=== PATIENT | female | born 2000 | race Caucasian/White ===

== ENCOUNTER → 2021-03-12 12:33 | Day surgery (SDC) | payer BC, MEDICAID, SELFPAY ==
[2021-03-12 12:48] VITALS: BP 124/82; PULSE 84; RESP 18; TEMP 36.2; O2SAT 98
[2021-03-12 13:59] VITALS: BP 128/84; PULSE 83; RESP 18; TEMP 36.3; O2SAT 100
== END ==
PROVIDERS: Visit Provider Family Medicine
DX: O26.892 Other specified pregnancy related conditions, second trimester (principal); Z3A.00 Weeks of gestation of pregnancy not specified; Z67.91 Unspecified blood type, Rh negative
CPT/HCPCS: 36415; 36430; 86850; 86900; 90384; 96372

== ENCOUNTER 2021-05-24 18:18 | Outpatient (CLI) | payer BC, MEDICAID, SELFPAY ==
[2021-05-24] VITALS (9 sets, daily range): BP systolic 99–121; BP diastolic 59–92; PULSE 85–115; RESP 17–18; TEMP 36.6–36.7; BMI 36.1
== END 2021-05-24 20:43 | disposition home or self-care (01) ==
LOC: OPOB 18:24 → OBGYN 18:40
PROVIDERS: Visit Provider Family Medicine
DX: O47.9 False labor, unspecified (principal)
CPT/HCPCS: 59025; 99211

== ENCOUNTER 2021-05-30 07:26 | Inpatient (IN) | payer BC, MEDICAID, SELFPAY ==
[2021-05-30] VITALS (58 sets, daily range): BP systolic 97–134; BP diastolic 54–79; PULSE 69–136; TEMP 36–36.4; O2SAT 98–100; BMI 35.9
[2021-05-30] MEDS: dextrose 5%-lactated ringers 1,000 ML 125 ML IV ×2 (08:35→18:24)
[2021-05-30] MEDS: oxytocin 30 UNIT/500 ML BAG IV (08:36)
[2021-05-30 09:18] LABS: Basophils # 0.1 10^3/uL (0.0-0.1); Basophils % 0.5 %; Eosinophils # 0.1 10^3/uL (0.0-0.8); Eosinophils % 0.5 %; Hematocrit 33.8 % (37.0-47.0); Hemoglobin 10.8 g/dL (11.5-15.3); Lymphocytes # 3.5 10^3/uL (0.8-4.8); Lymphocytes % 31.9 %; Mean Corpuscular Hemoglobin 26.5 pg (28.0-34.0); Mean Corpuscular Volume 82.8 fl (81-99); Mean Platelet Volume 10.9 fL (7.4-10.4); Monocytes # 0.8 10^3/uL (0.2-0.9); Monocytes % 7.5 %; Neutrophils # 6.51 10^3/uL (1.8-7.7); Neutrophils % 59.1 %; Nucleated Red Blood Cells % 0 %; Platelet Count 255 10^3/cmm (130-400); Red Blood Count 4.08 10^6/uL (4.1-5.3); Red Cell Distribution Width 12.9 % (12.1-15.1)
[2021-05-30] MEDS: lactated ringers 1,000 ML 999 ML IV (14:37)
--- NOTE | 2021-05-30 15:17 | P.ANESASSM_ITS ---
Pre-Anesthetic Assessment Pre-Anesthetic Assessment: Height/Weight: Height 1.65 m Weight 97.976 kg Temp Pulse BP Pulse Ox 96.8 F L 77 115/66 100 05/30/21 13:17 05/30/21 15:13 05/30/21 15:10 05/30/21 15:13 Was Beta Shubham taken within 24 hours: N/A Was Clonidine taken within 24 hours: N/A Social: Social History: No alcohol and No tobacco Exam: Pre-Anes Outpt Exam: alert, oriented x 3, clear to auscultation bilaterally and regular rate & rhythm Airway: Submandibular: WNL Cervical ROM: WNL MP: 2 Dentition: Full Metabolic: Metabolic: Thyroid Anesthetic Plan: ASA status: 2 Anesthesia: Regional (specify below) (labor epidural) Risk of > 500 ml blood loss (7ml/kg in children): No Meds/Allergies Current Medications: Current Medications Generic Name Dose Route Start Last Admin Trade Name Freq PRN Reason Stop Dose Admin Lactated Ringer's 1,000 mls @ 999 m ls/hr 05/30/21 08:05 05/30/21 14:37 Lactated Ringers IV 999 mls/hr .Q1H1M PRN Administration BLEEDING Dextrose/Lactated Ringer's 1,000 mls @ 125 m ls/hr 05/30/21 08:15 05/30/21 08:35 Dextrose 5%-Lact ated Ringers IV 125 mls/hr .Q8H ANGELO Administration Oxytocin 30 unit in 500 ml s @ 1 mls/hr 05/30/21 08:15 05/30/21 14:18 Pitocin IV 20 milliunit/min .Q24H ANGELO 20 mls/hr Titration Protocol 1 MILLIUNIT/MIN PFSH Anesthesia Female Reproductive History: : 3 Data Anesthesia CBC & Chem 7: 05/30/21 08:00 Other Labs: Laboratory Results - last 48 hr 05/30/21 08:00 WBC 11.0 H RBC 4.08 L Hgb 10.8 L Hct 33.8 L MCV 82.8 MCH 26.5 L MCHC 32.0 RDW 12.9 Plt Count 255 MPV 10.9 H Neut % (Auto) 59.1 Lymph % (Auto) 31.9 [place] % (Auto) 7.5 Eos % (Auto) 0.5 Baso % (Auto) 0.5 Neut # (Auto) 6.51 Lymph # (Auto) 3.5 [place] # (Auto) 0.8 Eos # (Auto) 0.1 Baso # (Auto) 0.1 Nucleated RBC % (auto) 0 Nucleated RBCs # 0.0 Cardiac Studies: No Data to Display
--- NOTE | 2021-05-30 15:18 | ANES.PROC ---
Anesthesia Procedures Procedure/Date: 05/30/21 Epidural: Time Out Performed: Yes Consents Signed: Procedure Consent Consent: requested by attending/covering physician, from patient, risks and benefits reviewed and patient agrees to proceed Lumbar Level: L3-L4 Epidural position: sitting Epidural procedure: sterile prep of area, 1% lidocaine to numb the area, 18 g needle, neg for paresthesia, test dose given, 1.5% xylocaine 1:200k epi, placed PCEA, no systemic response, sterile dressing applied and 0.2% Ropiavacaine @ mls/hr (13) Additional Comments: [place] at 6cm, cath at 11cm, bolused 5mls of 2% lido
--- NOTE | 2021-05-30 20:29 | P.PCNOB_ITS ---
Delivery Note: Date of delivery: May 30, 2021 Pre-Delivery Course: Mother had routine care with transfer to [facility] at 27 weeks gestation. The was complicated by hypothyroidism. Blood type was O- antibody negative, UDS negative, hepatitis B surface antigen negative, RPR nonreactive, hepatitis C antibody negative, HIV negative, rubella immune glucose tolerance test 1 hour was 145 patient had a normal 3-hour glucose tolerance test. Her TSH at her 27-week visit was 9.32. Her Synthroid was adjusted and subsequent TSH were within normal limits. Delivery: This is a 21-year-old G3, P1 at 39 weeks 4 days gestation who was admitted for an elective induction. Mother wished to be induced secondary to distance from the hospital and 's job responsibilities. Her cervix was favorable for induction and she was started on Pitocin. She had artificial rupture of membranes with clear fluid. Rupture of membranes was approximately 6 hours prior to delivery. She was GBS negative. She had a normal spontaneous vaginal delivery with subsequent shoulder dystocia. The infant's head delivered OP and was turtling at 1942. Aylin was performed without success. The legs were repositioned and Aylin was repeated along with suprapubic pressure. The posterior hand was present at the infants chin. Attempt was made to deliver the posterior shoulder but was unsuccessful. With some corkscrewing and repeating of all the maneuvers the infant was delivered at 1942. She was placed on the mother's chest wall the cord was clamped and cut but she was rather floppy and was taken immediately to the warmer for stimulation and care by the pediatric nurse. The placenta was delivered grossly intact and normal to inspection. There were no lacerations. Estimated blood loss 100 mL. Mother was doing well after delivery. The was saturating well on room air but had consistent grunting with respirations so was taken to the nursery for further evaluation and CPAP. A&P Assessment and plan (1) Normal spontaneous vaginal delivery: Routine care Status: Acute (2) Shoulder dystocia during labor and delivery, delivered: Status: Acute (3) Hypothyroidism (acquired): Status: Acute Coding Level of Care Code Acute Patient Care Specialist for Chg Fwd Diagnoses Normal spontaneous vaginal delivery O80 Shoulder dystocia during labor and delivery, delivered O66.0 Hypothyroidism (acquired) E03.9
[2021-05-31] VITALS (9 sets, daily range): BP systolic 100–125; BP diastolic 52–74; PULSE 61–85; TEMP 35.9–36.3
[2021-05-31] MEDS: HYDROcodone-acetaminophen 5-325 mg Tablet PO (00:53)
[2021-05-31] MEDS: lanolin oint 7 gm 1 APPLIC TOPICAL (00:53)
[2021-05-31] MEDS: benzocaine-menthol 78 gm Canister 1 SPRAY TOPICAL (00:54)
[2021-05-31 09:44] LABS: Hematocrit 33.8 % (37.0-47.0); Hemoglobin 10.8 g/dL (11.5-15.3); Mean Corpuscular Hemoglobin 26.5 pg (28.0-34.0); Mean Platelet Volume 10.3 fL (7.4-10.4); Platelet Count 250 10^3/cmm (130-400); Red Blood Count 4.07 10^6/uL (4.1-5.3)
--- NOTE | 2021-05-31 09:51 | ANE.PACU2 ---
Inpatient post-anesthesia follow up: Airway intact: Yes Vital signs: Temperature 96.6 F Pulse Rate 85 Respiratory Rate Blood Pressure 100/67 Pulse Oximetry 98 Oxygen Delivery Me thod Room Air Oxygen Flow Rate Fraction of Inspir ed Oxygen Hydration adequate: Yes Nausea and vomiting: No Pain level: 2 Mental status: Baseline
[2021-05-31] MEDS: docusate sodium 100 mg Capsule PO ×2 (10:28→18:32)
[2021-05-31] MEDS: prenatal vitamin Capsule 1 CAP PO (10:28)
[2021-05-31] MEDS: ibuprofen 800 mg tablet PO ×3 (10:28→21:34)
[2021-05-31] MEDS: levothyroxine 125 mcg Tablet PO (10:29)
[2021-05-31 11:15] LABS: Glucose Point of Care 64 mg/dL (70-110)
[2021-05-31 12:07] LABS: Glucose Point of Care 57 mg/dL (70-110)
--- NOTE | 2021-05-31 15:17 | P.PN_ITS ---
Subjective Subjective: Interval history: Doing well, just got out of the shower, very light vaginal bleeding Vitals/I&O/Wt Last Vital Signs Temp 96.6 F L 05/31/21 08:10 Pulse 75 05/31/21 10:32 BP 125/74 05/31/21 10:32 Pulse Ox 98 05/30/21 23:50 05/31/21 05/31/21 05/31/21 06:59 14:59 22:59 Output Total 1600 / 2900 Balance -1600 / -575.417 Weight last 48 hrs Weight 97.976 kg Physical Exam Narrative: EXAM NARRATIVE: Alert and oriented, walking around, lungs clear to auscultation bilaterally, heart regular rate and rhythm, abdomen soft and nontender, fundus firm and low, difficult to palpate, no calf tenderness and no edema. Urinary Catheter Management^: Spaulding Latex Free: Cath Placed During This Visit: yes, but has since been removed by the nurse Reason for Continuing Indwelling Catheter: Decision to DC Catheter Urinary Catheter Date of Insertion: 05/30/21 Urinary Catheter Time of Insertion: 15:28 Date Urinary Catheter Removed: 05/30/21 Time Urinary Catheter Discontinued: 19:25 Spaulding: Cath Placed During This Visit: yes, but has since been removed by the nurse Reason for Continuing Indwelling Catheter: Decision to DC Catheter Urinary Catheter Date of Insertion: 05/30/21 Urinary Catheter Time of Insertion: 15:28 Date Urinary Catheter Removed: 05/30/21 Time Urinary Catheter Discontinued: 19:25 Data : 05/31/21 09:35 A&P Assessment and plan (1) Normal spontaneous vaginal delivery: Continue routine , likely discharge home tomorrow Status: Acute (2) Hypothyroidism (acquired): Status: Acute Attestations Medical Necessity Statement*: Routine care Coding Level of Care Code Acute Client Support Coordinator for Chg Fwd Diagnoses Normal spontaneous vaginal delivery O80 Hypothyroidism (acquired) E03.9
[2021-06-01] VITALS (13 sets, daily range): BP systolic 81–100; BP diastolic 51–67; PULSE 47–68; RESP 16; TEMP 36–36.4
[2021-06-01] MEDS: ibuprofen 800 mg tablet PO ×2 (09:14→14:15)
[2021-06-01] MEDS: levothyroxine 125 mcg Tablet PO (09:14)
[2021-06-01] MEDS: prenatal vitamin Capsule 1 CAP PO (09:14)
[2021-06-01] MEDS: docusate sodium 100 mg Capsule PO (09:14)
[2021-06-01] MEDS: ferrous sulfate EC 325 mg Tablet PO (09:15)
--- NOTE | 2021-06-01 09:42 | PC.NURSE ---
Pt does not have IV or PIID. Pt voices they took it out last night. Site clean and asymptomatic.
--- NOTE | 2021-06-01 11:54 | PM.OBGYDC ---
Discharge Providers ACCOUNT SUPPORT ASSOCIATE Date of Admission: 05/30/21 07:26 Date of Discharge: 06/01/21 Attending Provider at Admission: Yasmin Ortega MD Attending Provider at Discharge: Yasmin Ortega MD Diagnoses at Discharge Discharge Diagnosis (1) Normal spontaneous vaginal delivery: Status: Acute (2) Hypothyroidism (acquired): Status: Acute Reason for Visit Reason for Visit: IUP Hospital Course Hospital Course This is a 21-year-old G2 now P2 who presented for an elective induction at 39 weeks 4 days gestation. She had a normal spontaneous vaginal delivery with a mild to moderate shoulder dystocia of a viable female infant. Mother did well after delivery. She was ambulating, tolerating a regular diet, had minimal vaginal bleeding and was comfortable with discharge home. Information Peripartum Data: Delivery Method: Vaginal Physical Exam Const: COMMON NORMALS: no acute distress and healthy appearing HENMT: COMMON NORMALS: normocephalic and atraumatic HEAD & SCALP: normocephalic and atraumatic Chest: COMMONS NORMALS: normal inspection of the chest Resp: COMMON NORMALS: normal respiratory effort and clear to auscultation bilaterally AUSCULTATION: clear to auscultation bilaterally Cardio: COMMON NORMALS: regular rate and regular rhythm RATE: regular rate RHYTHM: regular rhythm GI: COMMON NORMALS: Soft to palpation and non-tender (Fundus U- 2) PALPATION: Yes Soft to palpation Extremity: GENERAL: No calf tenderness and No edema Urinary Catheter Management^: Spaulding Latex Free: Cath Placed During This Visit: yes, but has since been removed by the nurse Reason for Continuing Indwelling Catheter: Decision to DC Catheter Urinary Catheter Date of Insertion: 05/30/21 Urinary Catheter Time of Insertion: 15:28 Date Urinary Catheter Removed: 05/30/21 Time Urinary Catheter Discontinued: 19:25 [place]aul[place]: Cath Placed During This Visit: yes, but has since been removed by the nurse Reason for Continuing Indwelling Catheter: Decision to DC Catheter Urinary Catheter Date of Insertion: 05/30/21 Urinary Catheter Time of Insertion: 15:28 Date Urinary Catheter Removed: 05/30/21 Time Urinary Catheter Discontinued: 19:25 Discharge Data Data Completed and Pending: Labs from last 24 hours 05/31/21 12:03 POC Glucose 57 L Vitals: Last Vital Signs Temp 97.5 F L 06/01/21 10:56 Pulse 56 L 06/01/21 10:54 Resp 16 06/01/21 10:58 BP 98/58 06/01/21 10:54 Pulse Ox 98 05/30/21 23:50 Discharge Plan Discharge Patient Disposition: Home Condition: Stable Prescriptions: Continued 28-800 mg-mcg Tablet 1 tab PO RF: 0 levothyroxine 125 mcg tablet 125 mcg PO DAILY Qty: 90 RF: 0 Discharge Orders: Discharge Order (Routine); Ordered 06/01/21 Ordered By: Yasmin Ortega Referrals: Yasmin Ortega MD [Physician] - 1 month Discharge Diet: Usual diet Discharge Activity: Limit activity as instructed Patient Instructions: Depression (GEN), Bleeding (DC), Preeclampsia and Eclampsia After Delivery (GEN), OB Discharge Report, OB Food/Drug Interaction Guide, Opioid Safety, OB Home Care, OB Vaginal Deliveries Discharge Attestations ACCOUNT SUPPORT ASSOCIATE Time Spent in Discharge Care*: less than 30 min Coding Level of Care Code Acute Quiller Runner for Chg Fwd Diagnoses Normal spontaneous vaginal delivery O80 Hypothyroidism (acquired) E03.9
== END 2021-06-01 14:30 | disposition home or self-care (01) | DRG 806 ==
PROVIDERS: Admitting Provider Family Medicine; Visit Provider Family Medicine
DX: O99.284 Endocrine, nutritional and metabolic diseases complicating childbirth (principal); O36.0930 Maternal care for other rhesus isoimmunization, third trimester, not applicable or unspecified; Z37.0 Single live birth; E03.9 Hypothyroidism, unspecified; O66.0 Obstructed labor due to shoulder dystocia; Z3A.39 39 weeks gestation of pregnancy
CPT/HCPCS: 36415; 36416; 51702; 59409; 82962; 85025; 85027